=== PATIENT | female | born 2000 | race Caucasian/White ===

== ENCOUNTER 2025-02-01 12:15 | Inpatient (IN) | payer OTHER ==
[~2025-02-01] VITALS: Ht 160 cm; Wt 59.6 kg
[2025-02-01] MEDS ORDERED: VENTAER INH (12:51)
[2025-02-01 13:29] LABS: PLATELET COUNT, AUTOMATED 268 10^3/uL (150-450)
[2025-02-01 13:58] LABS: AMPHETAMINES LEVEL URINE NEGATIVE (NEGATIVE); BARBITURATES URINE NEGATIVE (NEGATIVE); BENZODIAZEPINES URINE NEGATIVE (NEGATIVE); CANNABINOIDS URINE NEGATIVE (NEGATIVE); COCAINE METABOLITE URINE NEGATIVE (NEGATIVE); METHADONE URINE NEGATIVE (NEGATIVE); OPIATES URINE NEGATIVE (NEGATIVE); PHENCYCLIDINE URINE NEGATIVE (NEGATIVE)
[2025-02-01 14:01] LABS: ETHYL ALCOHOL (ETHANOL) < 0.003 % (0.000-0.010)
[2025-02-01 14:03] LABS: ALT/SGPT 10 U/L (7.0-40); AST/SGOT 12 U/L (<34); CALCIUM LEVEL 9.4 MG/DL (8.5-10.1); CARBON DIOXIDE LEVEL 26 MMOL/L (20-31); CHLORIDE LEVEL 103 MMOL/L (98-107); CREATININE FOR GFR 0.79 MG/DL (0.55-1.30); GLOMERULAR FILTRATION RATE > 90.0 (>60); POTASSIUM SERUM 3.7 MMOL/L (3.5-5.1); SALICYLATE LEVEL < 3.0 MG/DL (<30); SODIUM LEVEL 139 MMOL/L (136-145)
[2025-02-01 14:39] LABS: HCG, SERUM QUALITATIVE NEGATIVE (NEGATIVE)
[2025-02-01] MEDS ORDERED: ACETAMINOPHEN 325 MG TAB PO PRN (16:30)
[2025-02-01] MEDS ORDERED: IBUPROFEN 400 MG TAB PO PRN (16:30)
[2025-02-01] MEDS ORDERED: MOM 30 ML SUSPENSION UDC PO PRN (16:30)
[2025-02-01] MEDS ORDERED: MAALOX 30 ML SUSP *UDC PO PRN (16:30)
[2025-02-01] MEDS ORDERED: HOME MED LIST COMPLETE! XX SCH (17:00)
[2025-02-01 17:12] VITALS: BP 127/76; TEMP 98.3; O2SAT 99
[2025-02-01] MEDS: ALBUTEROL 90 MCG/ACT 8 GM HFA INHALER INH PRN (18:44)
[2025-02-01] MEDS: traZODone 50 MG TAB PO PRN (22:44)
[2025-02-02 06:25] VITALS: BP 96/52; TEMP 97.5; O2SAT 100
[2025-02-02] MEDS: buPROPion **XL** 150 MG TABLET PO SCH (09:31)
[2025-02-02 15:10] VITALS: BP 127/67; TEMP 98.1; O2SAT 100
[2025-02-02] MEDS: RAMELTEON 8 MG TAB PO SCH (20:13)
[2025-02-03 06:31] VITALS: BP 95/57; TEMP 98.2; O2SAT 100
[2025-02-03] MEDS: CEPACOL LOZENGE PO PRN (14:06)
[2025-02-03 15:13] VITALS: BP 108/70; TEMP 98.5; O2SAT 96
[2025-02-04 06:16] VITALS: BP 90/60; TEMP 97.9; O2SAT 98
[2025-02-04] MEDS ORDERED: BENZ1LOZ9 PO ×2 (07:37→15:51)
[2025-02-04] MEDS ORDERED: RAME8TAB2 PO (07:37)
[2025-02-04] MEDS ORDERED: BUPR150T12 PO (07:37)
[2025-02-04] MEDS ORDERED: VENTAER INH (07:37)
[2025-02-04] MEDS ORDERED: ROZE8TAB16 PO (15:51)
== END 2025-02-04 10:53 | disposition home or self-care (01) | DRG 881 ==
LOC: M ED 12:15 → M ED INP 16:29 → M PSY 17:07
PROVIDERS: ADMIT General Practice; ATTEND General Practice
DX: F32.A Depression, unspecified (principal); R45.851 Suicidal ideations; Z91.52 Personal history of nonsuicidal self-harm; Z63.5 Disruption of family by separation and divorce; Z79.51 Long term (current) use of inhaled steroids; Z91.0110 Allergy to milk products, unspecified; Z88.8 Allergy status to other drugs, medicaments and biological substances; Z91.048 Other nonmedicinal substance allergy status; J45.909 Unspecified asthma, uncomplicated; K58.9 Irritable bowel syndrome, unspecified; Z63.79 Other stressful life events affecting family and household